=== PATIENT | female | born 1960 | race Caucasian/White ===

== ENCOUNTER 2017-09-03 12:17 | Day surgery (SDC) | payer OTHER ==
[~2017-09-03] VITALS: Ht 167.6 cm; Wt 113.9 kg
[~2017-09-03 12:17] MED LIST: AMARYL4 MG PO; COZAAR25 MG PO; GLUCOPHAGE500 MG PO; INSULIN PUMP SCCONT; LANTUS 10100 UNITS/ SQ; LANTUS100 UNIT/1 SQ; LEVAQUIN750 MG PO; LEVEMIR FL100 UNIT/1 SC; LINZESS290 MCG PO; MAXALT10 MG PO; METFORMIN HCL500 MG PO; MIRALAX17 GM PO; NAPROSYN500 MG PO; NORCO 7.5/321 TABLET PO; NOVOLIN R100 UNIT/1 IM; NOVOLOG 10100 UNITS/ SC; NOVOLOG100 UNIT/1 SQ; NOVOLOG100 UNIT/3 SC; PERCOCET 10/1 TABLET PO; PERCOCET 5/31 TABLET PO; PROBIOTIC1 EAC1 PO; PROTONIX40 MG PO; TRESIBA FL100 UNIT/1 SC; VICTOZA 2-0.6 MG/0.1 SC; ZESTORETIC,P1 TABLE2 PO
[2017-09-08] MEDS ORDERED: PHENTERMINE HCL15 MG PO (10:37)
[2017-09-08] MEDS ORDERED: LIPITOR10 MG PO (10:38)
[2017-09-08] MEDS ORDERED: ERGOCALCIF50000 UNIT PO (10:38)
[2017-09-08] MEDS ORDERED: ZANTAC75 M1 PO (11:13)
[2017-09-08] MEDS ORDERED: BUTALB-ASPIRIN1 EACH PO (11:14)
[2017-09-08] MEDS ORDERED: LYRICA50 MG PO (11:14)
== END 2017-09-03 15:15 | disposition home or self-care (01) ==
LOC: PAIN 12:17 → SDC 13:00 → CATH 13:00 → PAIN 13:00
PROVIDERS: Anesthesiology Pain Medicine
DX: M47.812 Spondylosis without myelopathy or radiculopathy, cervical region (principal); M54.2 Cervicalgia; G89.29 Other chronic pain; M54.81 Occipital neuralgia; E11.9 Type 2 diabetes mellitus without complications; Z79.4 Long term (current) use of insulin; Z88.0 Allergy status to penicillin
CPT/HCPCS: 82948; 93005; J1030; J2250; S0020

== ENCOUNTER 2017-09-10 12:20 | Day surgery (SDC) | payer OTHER ==
[~2017-09-10] VITALS: Ht 167.6 cm; Wt 113.4 kg
[~2017-09-10 12:20] MED LIST changes: +BUTALB-ASPIRIN1 EACH PO; +ERGOCALCIF50000 UNIT PO; +LIPITOR10 MG PO; +LYRICA50 MG PO; +PHENTERMINE HCL15 MG PO; +ZANTAC75 M1 PO
== END 2017-09-10 15:25 | disposition home or self-care (01) ==
LOC: PAIN 12:20 → SDC 13:00 → PAIN 13:00
PROVIDERS: Anesthesiology Pain Medicine
PROC: BR141ZZ Fluoroscopy of Cervical Facet Joint(s) using Low Osmolar Contrast (ICD-10-PCS; principal; 2017-09-10)
PROC: 3E0T3BZ Introduction of Anesthetic Agent into Peripheral Nerves and Plexi, Percutaneous Approach (ICD-10-PCS; principal; 2017-09-10)
PROC: 3E0T33Z Introduction of Anti-inflammatory into Peripheral Nerves and Plexi, Percutaneous Approach (ICD-10-PCS; principal; 2017-09-10)
DX: M47.812 Spondylosis without myelopathy or radiculopathy, cervical region (principal); M54.81 Occipital neuralgia; F41.9 Anxiety disorder, unspecified; I10 Essential (primary) hypertension; E11.9 Type 2 diabetes mellitus without complications; E66.01 Morbid (severe) obesity due to excess calories; Z68.41 Body mass index [BMI] 40.0-44.9, adult; Z88.0 Allergy status to penicillin; Z79.4 Long term (current) use of insulin
CPT/HCPCS: 82948; J1030; J2250; J2405; J3010; S0020

== ENCOUNTER 2017-11-12 10:39 | Day surgery (SDC) | payer OTHER ==
[~2017-11-12] VITALS: Ht 167.6 cm; Wt 113.4 kg
[~2017-11-12 10:39] MED LIST changes: -GLUCOPHAGE500 MG PO; -LIPITOR10 MG PO; +LIPITOR20 MG PO; +METFORMIN HCL500 M4 PO; -PHENTERMINE HCL15 MG PO; +PHENTERMINE HCL30 MG PO
== END 2017-11-12 12:05 | disposition home or self-care (01) ==
LOC: PAIN 10:39 → SDC 11:00 → PAIN 11:00
PROVIDERS: Anesthesiology Pain Medicine
PROC: BR141ZZ Fluoroscopy of Cervical Facet Joint(s) using Low Osmolar Contrast (ICD-10-PCS; principal; 2017-11-12)
PROC: 3E0T3TZ Introduction of Destructive Agent into Peripheral Nerves and Plexi, Percutaneous Approach (ICD-10-PCS; principal; 2017-11-12)
DX: M47.812 Spondylosis without myelopathy or radiculopathy, cervical region (principal); M54.81 Occipital neuralgia; G43.909 Migraine, unspecified, not intractable, without status migrainosus; E10.65 Type 1 diabetes mellitus with hyperglycemia; I10 Essential (primary) hypertension; E66.01 Morbid (severe) obesity due to excess calories; Z68.41 Body mass index [BMI] 40.0-44.9, adult; E78.5 Hyperlipidemia, unspecified; E55.9 Vitamin D deficiency, unspecified; Z88.0 Allergy status to penicillin; Z88.1 Allergy status to other antibiotic agents; Z88.8 Allergy status to other drugs, medicaments and biological substances
CPT/HCPCS: 82948; J1030; J2250; J2405; S0020

== ENCOUNTER 2017-11-19 10:22 | Day surgery (SDC) | payer OTHER ==
[~2017-11-19] VITALS: Ht 167.6 cm; Wt 113.4 kg
== END 2017-11-19 12:45 | disposition home or self-care (01) ==
LOC: PAIN 10:22 → SDC 11:00 → PAIN 12:45
PROVIDERS: Anesthesiology Pain Medicine
DX: M47.812 Spondylosis without myelopathy or radiculopathy, cervical region (principal); E78.5 Hyperlipidemia, unspecified; I10 Essential (primary) hypertension; E66.01 Morbid (severe) obesity due to excess calories; Z68.41 Body mass index [BMI] 40.0-44.9, adult; F41.9 Anxiety disorder, unspecified; E10.65 Type 1 diabetes mellitus with hyperglycemia; K21.9 Gastro-esophageal reflux disease without esophagitis; Z88.0 Allergy status to penicillin; Z79.4 Long term (current) use of insulin
CPT/HCPCS: 82948; J1030; J2250; S0020

== ENCOUNTER 2018-02-22 07:43 | Emergency (ER) | payer OTHER ==
[~2018-02-22] VITALS: Ht 167.6 cm; Wt 108.7 kg
[2018-02-22 08:46] LABS: HEMATOCRIT 37.4 % (36.0-46.0); HEMOGLOBIN 13.5 G/DL (11.9-15.5); MCH 30.9 PG (29.0-34.0); MCHC 36.1 G/DL (30.0-36.0); MCV 85.6 FL (83-99); PLATELET COUNT 202 K/uL (156-360); RBC DIS.WIDTH-CV 11.8 % (11.8-14.6); RBC DIS.WIDTH-SD 36.8 % (39-53); RED BLOOD COUNT 4.37 M/uL (3.80-5.20); WHITE BLOOD COUNT 5.6 K/uL (4.1-10.2)
[2018-02-22 08:55] LABS: ALBUMIN 3.6 g/dL (3.2-4.8); CHLORIDE 100 mEq/L (99-109); POTASSIUM 4.3 mEq/L (3.7-5.4); SODIUM 135 mEq/L (136-147)
[2018-02-22 08:58] LABS: TOTAL PROTEIN 6.6 g/dL (6.4-8.3)
[2018-02-22 08:59] LABS: TOTAL BILIRUBIN 0.5 mg/dL (0.0-1.0)
[2018-02-22 09:01] LABS: ALKALINE PHOSPHATASE 269 IU/L (3-129); CREATININE 0.8 mg/dL (0.6-1.3); GFR ESTIMATE (CALCULATED) > 59 mL/min/
[2018-02-22 09:02] LABS: UREA NITROGEN (BUN) 13 mg/dL (9-23)
[2018-02-22 09:03] LABS: AST (GOT) 20 IU/L (2-34)
[2018-02-22 09:04] LABS: ALT (GPT) 23 IU/L (3-49); LIPASE 15 U/L (1.0-51.0)
[2018-02-22 09:05] LABS: GLUCOSE 479 mg/dL (70-99)
[2018-02-22 09:11] LABS: QUANTITATIVE HCG < 4.0 MIU/ML
[2018-02-22 09:12] LABS: APPEARANCE CLEAR ((CLEAR)); BILIRUBIN NEGATIVE; BLOOD NEGATIVE; COLOR STRAW ((YELLOW)); GLUCOSE (STRIP) >=500; KETONES 20; LEUKOCYTES NEGATIVE; NITRITE NEGATIVE; PROTEIN (STRIP) 30; SPECIFIC GRAVITY 1.033 (1.000-1.030); UCUL ADDED? NO; UROBILINOGEN 0.2 MG/DL (0.2-1.0)
[2018-02-22] MEDS ORDERED: FLEXERIL10 MG PO (11:51)
[2018-02-22 12:05] VITALS: BP 146/92
== END 2018-02-22 12:30 | disposition home or self-care (01) ==
LOC: EME 07:43
PROVIDERS: Physician Assistant
DX: R10.9 Unspecified abdominal pain (principal); E11.65 Type 2 diabetes mellitus with hyperglycemia; Z79.84 Long term (current) use of oral hypoglycemic drugs; Z87.442 Personal history of urinary calculi; Z90.49 Acquired absence of other specified parts of digestive tract; K21.9 Gastro-esophageal reflux disease without esophagitis; Z88.0 Allergy status to penicillin
CPT/HCPCS: 74176; 80053; 81003; 82948; 83690; 84702; 85027; 99281; 99284; J1885; J2405; J7030